=== PATIENT | male | born 1975 | race Caucasian/White ===

== ENCOUNTER → 2017-04-28 | Outpatient (CLI) | payer OTHER ==
[~2017-04-28] MED LIST: ATV/1 PO; COEN150C PO; IBUP-1428 PO; INDO-24 PO; MAGN400T6 PO; OMEG10007 PO; PRLSR20 PO; SUMA25TA12 PO; TOPI25TA99 PO
[2017-04-28 16:26] LABS: LYME DISEASE AB IGG NEG (NEG); LYME DISEASE AB IGM NEG (NEG)
== END | disposition home or self-care (01) ==
LOC: C.LAB1850 13:26
PROVIDERS: ATTEND Internal Medicine
DX: R53.83 Other fatigue (principal); M25.50 Pain in unspecified joint; T14.8XXA Other injury of unspecified body region, initial encounter; W57.XXXA Bitten or stung by nonvenomous insect and other nonvenomous arthropods, initial encounter